=== PATIENT | female | born 1985 ===

== ENCOUNTER → 2019-03-18 | Outpatient (CLI) | payer OTHER | END | disposition home or self-care (01) | LOC: PRENATAL 11:00 | DX: O26.892 Other specified pregnancy related conditions, second trimester (principal) ==

== ENCOUNTER 2022-02-04 12:52 | Outpatient (CLI) | payer OTHER | END 2022-02-04 13:06 | disposition home or self-care (01) | LOC: RAD 12:52 | PROVIDERS: ATTEND Internal Medicine Pulmonary Disease | DX: U07.1 COVID-19 (principal); J45.31 Mild persistent asthma with (acute) exacerbation ==